=== PATIENT | female | born 1965 | race Caucasian/White ===

== ENCOUNTER 2020-03-16 15:16 | Emergency (ER) | payer OTHER ==
[~2020-03-16] VITALS: Ht 170.2 cm; Wt 136.1 kg
[~2020-03-16 15:16] MED LIST: ACETAMINOPHEN-1 EAC1 PO; CELEBREX 200 M200 M1 PO; CYMBALTA60 MG PO; ETODOLAC500 MG PO; KNEE STABILIZE1 EACH MC; LISINOPRIL-HCT1 EAC1 PO; MAXZIDE-25 MG1 EACH PO; NEURONTIN600 MG PO; PAXIL10 MG PO; SYNTHROID112 MC1 PO; ULTRAM 50MG TAB50 MG PO
[2020-03-16] MEDS ORDERED: CARVEDILOL12.5 MG PO (15:36)
[2020-03-16] MEDS ORDERED: ASA81BEC PO (15:36)
[2020-03-16] MEDS ORDERED: MELOXICAM15 MG PO (15:38)
[2020-03-16] MEDS ORDERED: CLARITIN10 M3 PO (15:38)
[2020-03-16] MEDS ORDERED: WELLBUTRIN SR100 MG PO (15:38)
[2020-03-16] MEDS ORDERED: LISINOPRIL2.5 MG PO (15:38)
[2020-03-16] MEDS ORDERED: TIZANIDINE HCL4 M1 PO (15:38)
[2020-03-16] MEDS ORDERED: BUTALB-APAP-CA1 EACH PO (17:57)
[2020-03-16 18:04] VITALS: BP 170/98
== END 2020-03-16 18:05 | disposition home or self-care (01) ==
LOC: M.ERS 15:16
DX: S00.03XA Contusion of scalp, initial encounter (principal); G89.29 Other chronic pain; I10 Essential (primary) hypertension; M19.90 Unspecified osteoarthritis, unspecified site; G62.9 Polyneuropathy, unspecified; Z96.649 Presence of unspecified artificial hip joint; Z88.5 Allergy status to narcotic agent; Z98.890 Other specified postprocedural states; Z96.659 Presence of unspecified artificial knee joint; V79.59XA Passenger on bus injured in collision with other motor vehicles in traffic accident, initial encounter; Y93.89 Activity, other specified; Y92.811 Bus as the place of occurrence of the external cause; Y99.8 Other external cause status